=== PATIENT | male | born 1965 | race Caucasian/White ===

== ENCOUNTER → 2017-01-09 | Outpatient (CLI) | payer OTHER ==
[~2017-01-09] MED LIST: OMEP-10 PO; OXYC-12 PO
--- NOTE | 2017-01-09 14:43 | Diagnostic Imaging Report ---
PROCEDURE: MRI right joint lower extremity without contrast. TECHNIQUE: Multiplanar, multisequence MR imaging of the right knee was performed without contrast. COMPARISON: None available. INDICATION: Right knee pain. FINDINGS: MENISCI Medial meniscus: Complex tearing of the body of the medial meniscus which includes a near-complete radial component in the midportion of the body. There is partial extrusion of the body into the lateral gutter. The posterior root insertional fibers remain intact. Lateral meniscus: Minimal degenerative free edge truncation of the body and posterior horn. LIGAMENTS ACL: Intact. PCL: Intact. MCL: There is minimal thickening of the proximal aspect of the MCL with surrounding edema. This creates low-grade sprain in the appropriate setting. LCL: The lateral collateral ligamentous complex is intact. EXTENSOR MECHANISM The extensor mechanism is intact. CARTILAGE Medial compartment: Low-grade partial-thickness chondral loss involving less than 50% of the thickness in the medial femoral condyle. No full-thickness chondromalacia in the medial compartment. Lateral compartment: The lateral compartment articular cartilage is preserved without high-grade chondromalacia. 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 No full-thickness chondromalacia. BONE No fracture, stress fracture or osteonecrosis. SOFT TISSUE: Small knee joint effusion with mild synovitis. No Savage's cyst. IMPRESSION: 1. Complex tearing of the medial meniscus, which includes a near-complete radial-type tear in the mid to posterior body. There is concomitant partial extrusion of the body into the medial gutter. No displaced meniscal fragments. 2. 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 No full-thickness chondromalacia in the knee. 3. Small knee joint effusion with mild synovitis. Dictated by: Dictated on workstation # [id number]
== END ==
LOC: RAD 13:06
PROVIDERS: ATTEND Orthopaedic Surgery
DX: M17.11 Unilateral primary osteoarthritis, right knee (principal); M22.41 Chondromalacia patellae, right knee; M23.221 Derangement of posterior horn of medial meniscus due to old tear or injury, right knee
CPT/HCPCS: 73721